=== PATIENT | female | born 1965 | race Caucasian/White ===

== ENCOUNTER 2021-01-21 07:02 | Day surgery (SDC) | payer BC ==
--- NOTE | 2021-01-21 06:32 | PCM.PREANE ---
Preanesthetic Assessment - Procedure Proposed Procedure: Anterior and Posterior Repair of Perineoplasty with subfascial midurethral sling - Anesthesia/Transfusion/Family Hx Anesthesia History: Prior Anesthesia Without Reaction Family History of Anesthesia Reaction: No Transfusion History: No Prior Transfusion(s) Intubation History: Unknown - Review of Systems General: No Symptoms Pulmonary: No Symptoms (Smoker:1/2 ppd times 30 years, ETOH: rarely), Cough Cardiovascular: No Symptoms, Dyspnea on Exertion Gastrointestinal: No Symptoms Neurological: No Symptoms Other: Reports: Thyroid Problems (History of thyroid nodule) - Physical Assessment NPO Status Date: 01/20/21 NPO Status Time: 22:30 Vital Signs: HR: 92 Sat: 94% Temp: 98.9 B/P: 130/90 Resp: 16 Height: 1.63 m Weight: 65 kg ASA Class: 2 Mental Status: Alert & Oriented x3 Airway Class: Mallampati = 2 Dentition: Reports: Normal Dentition, Partial, Caries Thyro-Mental Finger Breadths: 3 Mouth Opening Finger Breadths: 3 ROM/Head Extension: Full Lungs: Clear to Auscultation, Normal Respiratory Effort Cardiovascular: Regular Rate, Regular Rhythm, No Murmurs - Lab Values: All labs reviewed and noted and within acceptable ranges to proceed with scheduled procedure. - Allergies Allergies/Adverse Reactions: Allergies Allergy/AdvReac Type Severity Reaction Status Date / Time No Known Allergies Allergy Verified 05/07/18 09:12 - Anesthesia Plan Pre-Op Medication Ordered: None - Acknowledgements Anesthesia Type Planned: General Anesthesia Pt an Appropriate Candidate for the Planned Anesthesia: Yes Alternatives and Risks of Anesthesia Discussed w Pt/Guardian: Yes Pt/Guardian Understands and Agrees with Anesthesia Plan: Yes PreAnesthesia Questionnaire - CURRENT (IN HOUSE) MEDS Current Meds: Current Medications Lactated Ringer's (Ringers, Lactated) 1,000 mls @ 125 mls/hr IV ASDIRECTED HETAL Stop: 01/21/21 23:00 Lidocaine/Sodium Bicarbonate (Lidocaine 1%/Sod Bicarbonate In Ns 8.4% 1 Ml Syringe) 0.25 ml IDERM ONETIME PRN PRN Reason: Prior to IV Start Stop: 01/21/21 18:00 Sodium Chloride (Sodium Chloride 0.9% 10 Ml Syringe) 10 ml FLUSH ASDIRECTED PRN PRN Reason: Keep Vein Open Stop: 01/21/21 18:00
[~2021-01-21 07:02] MED LIST: Lactated Ringers 1,000 ML IV SCH; Lidocaine 1%/Sod Bicarbonate in NS 8.4% 1 ML Syringe IDERM PRN; Sodium Chloride 0.9% 10 ML Syringe FLUSH PRN
[2021-01-21] MEDS ORDERED: HYDROmorphone 0.5 MG/0.5 ML Syringe ONE (07:20)
[2021-01-21] MEDS ORDERED: Rocuronium 50 MG/5 ML Vial ONE (07:20)
[2021-01-21] MEDS ORDERED: Lactated Ringers 500 ML ONE (07:20)
[2021-01-21] MEDS ORDERED: Ketorolac 30 MG/ML SDV ONE (07:20)
[2021-01-21] MEDS ORDERED: Midazolam 1 MG/ML 2 ML SDV ONE (07:20)
[2021-01-21] MEDS ORDERED: Dexamethasone 4 MG/ML 5 ML MDV ONE (07:20)
[2021-01-21] MEDS ORDERED: ceFAZolin 1 GM Vial ONE (07:20)
[2021-01-21] MEDS ORDERED: Ondansetron 4 MG/2 ML SDV ONE (07:20)
[2021-01-21] MEDS ORDERED: fentaNYL 250 MCG/5 ML SDV ONE (07:21)
[2021-01-21] MEDS ORDERED: Propofol 200 MG/20 ML SDV ONE (07:21)
[2021-01-21] MEDS ORDERED: Sodium Chloride 0.9% 50 ML SDV ONE (07:32)
[2021-01-21] MEDS ORDERED: Lidocaine 1% with EPINEPHrine 1:100,000 10 ML MDV ONE (07:32)
[2021-01-21] MEDS ORDERED: diphenhydrAMINE 50 MG/ML SDV IVPUSH PRN (08:21)
[2021-01-21] MEDS ORDERED: HYDROmorphone 0.5 MG/0.5 ML Syringe IVPUSH PRN (08:21)
[2021-01-21] MEDS ORDERED: ePHEDrine 50 MG/ML SDV IVPUSH PRN (08:21)
[2021-01-21] MEDS ORDERED: Albuterol 0.083% 2.5 MG/3 ML Neb Soln NEB PRN (08:21)
[2021-01-21] MEDS ORDERED: Ondansetron 4 MG/2 ML SDV IVPUSH PRN ×2 (08:21→09:38)
[2021-01-21] MEDS ORDERED: fentaNYL 100 MCG/2 ML SDV IVPUSH PRN (08:21)
[2021-01-21] MEDS ORDERED: Midazolam 1 MG/ML 2 ML SDV IVPUSH PRN (08:21)
--- NOTE | 2021-01-21 09:34 | PCM.POSTAN ---
POST ANESTHESIA ASSESSMENT - MENTAL STATUS Mental Status: Alert - VITAL SIGNS Vital Signs: Last Vital Signs Temp 97.5 Pulse 90 01/21/21927 Resp 16 01/21/21927 BP 125/70 01/21/21927 Pulse Ox 99% 01/21/21927 - RESPIRATORY Respiratory Status: Respiratory Rate WNL, Airway Patent, O2 Saturation Stable, Supplemental Oxygen - CARDIOVASCULAR CV Status: Pulse Rate WNL, Blood Pressure Stable - GASTROINTESTINAL GI Status: No Symptoms - POST OP HYDRATION Hydration Status: Adequate & Stable
[2021-01-21] MEDS ORDERED: Acetaminophen/oxyCODONE 325-5 MG Tab PO PRN (09:38)
--- NOTE | 2021-01-21 09:47 | PCM.OPNOTE ---
- General Post-Op/Procedure Note Date of Surgery/Procedure: 01/21/21 Operative Procedure(s): Anterior and posterior vaginal repair with perineoplasty, subfascial mid urethral sling Findings: 1. Cystocele 2. Rectocele 3. Patient status post hysterectomy. Minimal vaginal cuff descensus. Pre Op Diagnosis: 1. Female cystocele. 2. Female rectocele. 3. Stress urinary incontinence. 4. Overactive bladder Post-Op Diagnosis: Same Anesthesia Technique: General ET Tube Other Anesthesia Type: Lidocaine quarter percent with [id number] cc total Primary Surgeon: Boogie Boogie Secondary Surgeon: Ziggy Ledezma Anesthesia Provider: Iram Woodall Reason Oven Attendant Was Necessary: Retraction, assistance, patient safety, quality of care. Fluid Replacement, Intraop: 1,200 EBL in mLs: 20 Drain/Tube Comments:: catheterused to fill bladder at the end of the case. Complications: None Condition: Good Free Text/Narrative:: Surgery duration: 51 minutes. Procedure: The patient is taken to the operating room and placed in a supine position on the operating table. She received 2 g of Ancef preoperatively for infection prophylaxis. She had sequential compression stockings in place for DVT prophylaxis. Patient was administered general endotracheal anesthesia. She was placed in a dorsal lithotomy position and prepped and draped in the usual fashion. Anterior vaginal repair was performed. Patient had emptied her bladder manager communication to the OR. Weighted speculum was placed in the vagina and the uppermost portion of the cystocele was identified. Two Allis clamps was placed at that uppermost point at a position approximately 1-1/2 cm lateral to the midline A second Allis clamp was placed approximately 2 cm from the urethral meatus. The areas and infiltrated with lidocaine quarter percent with epinephrine. Approximately 8 mL was used. The 2 lateral Allis clamps were retracted and an epithelial incision was made between the 2 clamps. A midline incision was then made with a Metzenbaum scissors. The overlying epithelium was then dissected off of the underlying vesicovaginal fascia. This all to lateral which when approximately midline was felt to be adequate to reduce the cystocele. When this was done approximately 5 trapezoidal shaped sutures of 0 Monocryl were then placed reapproximating the lateral supportive tissue midline and reducing the rectocele. At this point the excess epithelium bilaterally was removed and the epithelium was closed in a running fashion. Subfascial mid urethral sling was then placed: The epithelium overlying the urethra was grasped approximately 1 cm from the urethral meatus and approximately 2 cm cephalad from there with Allis clamps. The area of the skin overlying the medial aspect of the obturator foramen on each side just posterior to the origin the abductor longus muscle was marked with a marking pen. These 2 areas and the sub-fascial layer of the vaginal were then infiltrated with lidocaine quarter percent with epinephrine total of approximately 10 mL was used. incisions made in the epithelium overlying the urethra and 2 small stab wounds 3 mm in length were made in the 2 areas of the panty line of the patient. The subfascial planes were adequately dissected bilaterally to allow placement of the mesh. The helical adapter was then placed through the obturator on serena ent's left side, then brought out through the vaginal subfascial plane. Mesh was attached to it and then was pulled back through the obturator foramen. Same was done on the right side. Mesh was then snugged up to a Dilator 15 mm in diameter which was was used as a spacer to place the mesh in a tension-free position. At this point the mesh was cut off at the skin surface and the dilator was removed. The midline epithelium was closed with a short running suture of 3-0 Monocryl. Skin incisions were closed at the end of the case with Dermabond skin glue. After the posterior repair was performed the bladder was filled with approximately 240 cc of normal saline to facilitate voiding and therefore discharged home. Rectocele repair was then performed. The uppermost portion of the rectocele was identified and was grasped midline with an Allis clamp. The introital area was grasped at approximately the 4:00 and 8:00 positions at the junction of the vaginal and vulvar epithelium. The area of epithelium was then infiltrated with lidocaine quarter percent with epinephrine. A crystal-shaped piece of epithelium was removed from the posterior introital and perineal area. The vaginal epithelium was then undermined superiorly to the top of the rectocele. Was then incised midline. With sharp and blunt dissection the epithelium was then dissected off of the underlying vesicovaginal fascia. At this point approximately 4 sutures of 0 Monocryl were placed to reapproximate the lateral supportive tissue midline and reduce the rectocele. The excess epithelium was then excised and the epithelium overlying the rectocele repair was then reapproximated with a running suture of 3-0 Monocryl. Perineoplasty was then performed with approximately 3 V-shaped stitches of 0 Monocryl in placed to reapproximate the lateral tissue midline, rebuild the perineum about 1 cm and the vagina approximately 1 cm. The epithelium of the introitus and perineal body was then reapproximated using 3-0 Monocryl in an episiotomy repair fashion. Sponge stick was placed to remove old blood. A tight 2 fingerbreadth caliber and full finger length depth was confirmed on evaluation of the vagina at this time. This felt adequate to allow for sexual function at this time sponge, instrument and needle counts were correct. The patient was returned to supine position and was discharged from the operating room in good condition.
--- NOTE | 2021-01-21 11:31 | PCM48HPAN ---
Post Anesthesia Note - EVALUATION WITHIN 48HRS OF ANESTHETIC Vital Signs in Normal Range: Yes Patient Participated in Evaluation: Yes Respiratory Function Stable: Yes Airway Patent: Yes Cardiovascular Function Stable: Yes Hydration Status Stable: Yes Pain Control Satisfactory: Yes Nausea and Vomiting Control Satisfactory: Yes Mental Status Recovered: Yes Vital Signs: Last Vital Signs Temp 98.8 F 01/21/21 11:30 Pulse 88 01/21/21 11:30 Resp 88 H 01/21/21 11:30 BP 114/80 01/21/21 11:30 Pulse Ox 96 01/21/21 11:30
[2021-01-21] MEDS ORDERED: Ketorolac 30 MG/ML SDV IVPUSH ONE (14:00)
[2021-01-21] MEDS ORDERED: Ibuprofen 600 MG Tab PO PRN (20:00)
== END 2021-01-21 11:42 | disposition home or self-care (01) ==
LOC: JD.SDS 07:02
PROVIDERS: ATTEND Obstetrics & Gynecology
DX: N81.10 Cystocele, unspecified (principal); N81.6 Rectocele; N39.3 Stress incontinence (female) (male); N32.81 Overactive bladder; F17.210 Nicotine dependence, cigarettes, uncomplicated; Z88.0 Allergy status to penicillin; Z79.899 Other long term (current) drug therapy; Z98.890 Other specified postprocedural states; Z90.49 Acquired absence of other specified parts of digestive tract
CPT/HCPCS: 57260; 57288; J0690; J1100; J1170; J1885; J2250; J2370; J2405; J2704; J2710; J3010; J7120; C1771